=== PATIENT | female | born 1990 | race Two or more races ===

== ENCOUNTER 2018-08-30 02:05 | Emergency (ER) | payer SELFPAY ==
[~2018-08-30] VITALS: Ht 167.6 cm; Wt 80.3 kg
[2018-08-30 02:23] VITALS: BP 116/83
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
--- NOTE | 2018-08-30 02:45 | NUR ---
RADIOLOGY AT BEDSIDE FOR XRAY
== END 2018-08-30 03:31 | disposition home or self-care (01) ==
LOC: ER 02:05
DX: S63.591A Other specified sprain of right wrist, initial encounter (principal); S43.492A Other sprain of left shoulder joint, initial encounter; S13.4XXA Sprain of ligaments of cervical spine, initial encounter; S20.212A Contusion of left front wall of thorax, initial encounter; V49.49XA Driver injured in collision with other motor vehicles in traffic accident, initial encounter; Y93.89 Activity, other specified; Y92.413 State road as the place of occurrence of the external cause; Y99.8 Other external cause status
CPT/HCPCS: 71045-TC; 73030-TC; 73110